=== PATIENT | male | born 1940 | race African-American/Black ===

== ENCOUNTER 2018-07-26 14:42 | Emergency (ER) | payer MEDICARE, BC ==
[~2018-07-26] VITALS: Ht 188 cm; Wt 85.0 kg
[2018-07-26 15:15] VITALS: Ht 188 cm; Wt 85.0 kg
[2018-07-26] MEDS ORDERED: LISI10TA2 PO (17:12)
[2018-07-26] MEDS ORDERED: ATOR20TA38 PO (17:12)
--- NOTE | 2018-07-26 17:12 | ERD ---
ER Documentation Chief Complaint Chief Complaint SENT FOR ADMISSION D/T DX OF PNEUMONIA, C/O COUGH/SOB HPI This is a 77-year-old male presents to the emergency department with a past medical history of hypertension. The patient states that he was visiting [facility] 1 week ago and was seen on July 24 at [facility] where he was diagnosed with walking pneumonia. He had gone to the hospital as he stated he was experiencing hiccups and shortness of breath. The patient drove back from [place] and was given a prescription of Zithromax chlorpromazine and Robitussin. He states however that he did not have these medications filled. He has been experiencing a drug cough that became productive 24 hours prior to a rrival. He also complains of swelling and pain of his bilateral lower extremities. He denies any history of tobacco use. He has had no fevers or shaking or chills. He denies any syncope or near syncope episode. He does not have a headache or neck pain. ROS All systems reviewed and are negative except as per history of present illness. Medications Home Meds Reported Medications Atorvastatin Calcium* (Atorvastatin Calcium*) 20 Mg Tablet, 20 MG PO QHS, #30 TAB 07/26/18 Lisinopril* (Lisinopril*) 10 Mg Tablet, 10 MG PO DAILY, #30 TAB 07/26/18 Allergies Allergies: Coded Allergies: Unknown: Unable to obtain (Unverified , 07/26/18) PT NOT SURE WHAT HE IS ALLERGIC TO PMhx/Soc Medical and Surgical Hx: pt denies Medical Hx, pt denies Surgical Hx Hx Alcohol Use: No Hx Substance Use: No Hx Tobacco Use: No Smoking Status: Unknown if ever smoked Physical Exam Vitals Vital Signs Date Temp Pulse Resp B/P (MAP) Pulse Ox O2 O2 Flow FiO2 Time Delivery Rate 07/26/18 98.3 66 16 101/86 99 Room Air 16:25 (91) 07/26/18 98.8 65 18 97/69 (78) 98 15:15 Physical Exam Constitutional:Well-developed. Well-nourished. HEENT:Normocephalic. Atraumatic.Pupils were equal round reactive to light. Moist mucous membranes.No tonsillar exudates. Neck: No nuchal rigidity. No lymphadenopathy. No posterior cervical spine tenderness or step-offs. Respiratory: Not using accessory muscles of respiration.Lungs were clear to auscultation bilaterally. No rhonchi. No rales. No wheezing. Cardiovascular: Regular rate regular rhythm.No murmurs. No rubs were appreciated.S1, S2 normal. Distal pulses are palpable 2+ bilaterally. GI: Abdomen was soft. Nontender. Non Distended. No pulsatile abdominal masses or bruits. No rebound. No guarding. Bowel sounds were present and normal. Muscle skeletal: Full range of motion of both the upper and lower extremities bilaterally.Normal muscle tone.asymmetrical calf swelling however bilateral calf tenderness with negative Homans sign Skin: No petechia, no purpura. No lesions on the palms or the soles of the feet. No maculopapular rash. NEURO: Patient was alert, awake, orientated x3.No facial droop. Gait observed and normal with no ataxia.Speech had regular rate and rhythm. No focal neurological deficits. Result Diagram: 07/26/18 1607 07/26/18 1607 Results 24 hrs Laboratory Tests Test 07/26/18 16:00 07/26/18 16:07 Urine Color YELLOW Urine Clarity SLIGHTLY CLOUDY Urine pH 5.0 Urine Specific [place] 1.030 Urine Ketones TRACE mg/dL Urine Nitrite NEGATIVE mg/dL Urine Bilirubin NEGATIVE mg/dL Urine Urobilinogen NEGATIVE mg/dL Urine Leukocyte Esterase NEGATIVE Clemente/ul Urine Microscopic RBC 1 /HPF Urine Microscopic WBC 1 /HPF Urine Mucus FEW /HPF Urine Hemoglobin NEGATIVE mg/dL Urine Glucose NEGATIVE mg/dL Urine Total Protein 2+ mg/dl White Blood Count 3.4 10^3/ul Red Blood Count 4.85 10^6/ul Hemoglobin 14.1 g/dl Hematocrit 43.7 % Mean Corpuscular Volume 90.1 fl Mean Corpuscular Hemoglobin 29.1 pg Mean Corpuscular Hemoglobin Concent 32.3 g/dl Red Cell Distribution Width 13.1 % Platelet Count 95 10^3/UL Mean Platelet Volume 12.1 fl Immature Granulocytes % 0.300 % Neutrophils % % Lymphocytes % % Monocytes % % Eosinophils % % Basophils % % Nucleated Red Blood Cells % 0.0 /100WBC Immature Granulocytes # 0.010 10^3/ul Neutrophils # 10^3/ul Lymphocytes # 10^3/ul Monocytes # 10^3/ul Eosinophils # 10^3/ul Basophils # 10^3/ul Nucleated Red Blood Cells # 10^3/ul Prothrombin Time 12.1 Sec Prothrombin Time Ratio 0.9 INR International Normalized Ratio 0.89 Activated Partial Thromboplast Time 33.2 Sec Sodium Level 142 mmol/L Potassium Level 3.8 mmol/L Chloride Level 102 mmol/L Carbon Dioxide Level 29 mmol/L Anion Gap 11 Blood Urea Nitrogen 23 mg/dl Creatinine 1.55 mg/dl Est Glomerular Filtrat Rate mL/min mL/min Glucose Level 106 mg/dl Calcium Level 9.1 mg/dl Total Bilirubin 0.5 mg/dl Direct Bilirubin 0.00 mg/dl Indirect Bilirubin 0.5 mg/dl Aspartate Amino Transf (AST/SGOT) 81 IU/L Alanine Aminotransferase (ALT/SGPT) 32 IU/L Alkaline Phosphatase 61 IU/L Troponin I 0.017 ng/ml B-Type Natriuretic Peptide 418 PG/ML Total Protein 7.2 g/dl Albumin 3.9 g/dl Globulin 3.30 g/dl Albumin/Globulin Ratio 1.18 Amylase Level 99 U/L Lipase 22 U/L Current Medications Medications Dose Sig/Cesar Start Time Status Last (Trade) Ordered Route PRN Stop Time Admin Dose Reason Admin IV Flush 10 ml STK-MED 07/26/18 DC (NS 10 ml) ONCE .ROUTE 18:20 07/26/18 18:21 Sodium 100 ml @ ud STK-MED 07/26/18 DC Chloride ONCE .ROUTE 18:20 07/26/18 18:21 Iodixanol 100 ml STK-MED 07/26/18 DC ([place] ONCE .ROUTE 18:20 Locm) 07/26/18 18:21 Procedures/MDM The patient presented to the emergency department with shortness of breath. My differential diagnosis included but was not limited to upper airway obstruction, CHF, pulmonary embolism, cardiac ischemia, pneumonia, pneumothorax, anemia, drug overdose, pulmonary edema, COPD or asthma. 12 Lead EKG tracing ordered and reviewed by myself showed: Normal sinus rhythm of 65 bpm and no arrhythmia. UT interval normal. QRS duration normal. No ST segment elevation No ST segment depression. No changes consistent with acute ischemia. The patient was a high pretest probability according to the Wells criteria for pulmonary embolism and therefore obtain a CT scan of the patient's chest due to his recent travel. There is no evidence of pulmonary embolism. CT scan of the chest did indicate the followin. Normal CT pulmonary angiogram with no evidence of pulmonary artery embolism. 2. 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 3. Atherosclerosis. 4. Cardiomegaly. 5. Stent in the LAD and circumflex. 6. Dual lead permanent pacemaker/internal cardiac defibrillator. 7. Otherwise unremarkable CT scan of the chest. The patient did have a mild elevation in his creatinine. He did receive IV contrast and therefore was given a liter bolus of normal saline. Venous duplex ultrasounds were negative the bilateral lower extremities. I obtained a chest radiograph that showed no evidence of pneumonia. The patient did not have any physical exam findings to suggest congestive heart failure. The patient had no evidence of pneumonia. I did not feel is necessary to administer antibiotics. I indicated that his cough likely could be the result of a viral etiology. I do feel that he can be safely discharged home. The patient was discharged home in fair condition. They were instructed to return to the emergency department at any time if there was any worsening of their condition. The patient stated they would follow up with their PCP in the next 24-48 hours to initiate a suitable medication regimen under the care of their PCP as well as to allow their PCP to monitor any drug reactions. The patient was discharged home with prescriptions after they gave informed consent to the new medication. They were also fully informed by myself on the adverse effects and adverse drug interactions in order to provide adequate safeguards to prevent possible adverse reactions to medications. Departure Diagnosis: Primary Impression: Shortness of breath Additional Impression: Cough Condition: JOSSY Hutson MD Jul 26, 2018 17:12
[2018-07-26] MEDS ORDERED: SOD CHLORIDE 0.9% 100 ML ONE (18:20)
[2018-07-26] MEDS ORDERED: IODIXANOL LOCM 100 ML BTL ONE (18:20)
[2018-07-26] MEDS ORDERED: BENZ-6 PO (19:04)
[2018-07-26 19:30] VITALS: BP 102/84; PULSE 67; RESP 18
== END 2018-07-26 19:34 | disposition home or self-care (01) ==
LOC: E/R 14:42
DX: R06.02 Shortness of breath (principal); I10 Essential (primary) hypertension
CPT/HCPCS: 71045; 71275; 80053; 81001; 82150; 83690; 83880; 84484; 85025; 85610; 85730; 87040; 87086; 93005; 93970; 99285; Q9967

== ENCOUNTER 2018-08-27 11:58 | Emergency (ER) | payer MEDICARE, BC ==
[~2018-08-27] VITALS: Ht 185.4 cm; Wt 87.7 kg
[~2018-08-27 11:58] MED LIST: ATOR20TA38 PO; BENZ-6 PO; LISI10TA2 PO
[2018-08-27 12:40] VITALS: BP 143/87; PULSE 58; RESP 16; Ht 185.4 cm; Wt 87.7 kg
--- NOTE | 2018-08-27 13:12 | ERD ---
ER Documentation Chief Complaint Chief Complaint RT KNEE PAIN, "FEELS SOMETHING FLOATING" HPI 77-year-old male, previously healthy, presents to the emergency department, complaining of right knee pain that started 1 week ago. The patient denies any recent history of knee trauma. The patient has been able to ambulate without difficulty, he denies distal weakness, numbness or tingling. ROS All systems reviewed and are negative except as per history of present illness. Medications Home Meds Active Scripts Acetaminophen* (Tylenol*) 325 Mg Tablet, 2 TAB PO Q6 PRN for PAIN AND OR ELEVATED TEMP, #20 TAB Prov:BELTRAN EVANS MD 08/27/18 Ibuprofen* (Motrin*) 400 Mg Tab, 400 MG PO Q6H PRN for PAIN AND OR ELEVATED TEMP, #30 TAB Prov:BELTRAN EVANS MD 08/27/18 Benzonatate* (Tessalon Perle*) 100 Mg Capsule, 100 MG PO TID, #20 CAP Prov:JOSSY HENRIQUEZ MD 07/26/18 Reported Medications Atorvastatin Calcium* (Atorvastatin Calcium*) 20 Mg Tablet, 20 MG PO QHS, #30 TAB 07/26/18 Lisinopril* (Lisinopril*) 10 Mg Tablet, 10 MG PO DAILY, #30 TAB 07/26/18 Allergies Allergies: Coded Allergies: No Known Allergy (Unverified , 08/27/18) PMhx/Soc Medical and Surgical Hx: pt denies Medical Hx, pt denies Surgical Hx Hx Alcohol Use: No Hx Substance Use: No Hx Tobacco Use: No FmHx Family History: No diabetes, No coronary disease Physical Exam Vitals Vital Signs Date Temp Pulse Resp B/P (MAP) Pulse Ox O2 O2 Flow FiO2 Time Delivery Rate 08/27/18 98.0 58 16 143/87 99 12:40 (105) Physical Exam Const: No acute distress Head: Atraumatic Eyes: Normal Conjunctiva ENT: Normal External Ears, Nose and Mouth. Neck: Full range of motion. No meningismus. Resp: Clear to auscultation bilaterally Cardio: Regular rate and rhythm, no murmurs Abd: Soft, non tender, non distended. Normal bowel sounds Skin: No petechiae or rashes Back: No midline or flank tenderness Ext: No cyanosis, or edema Neur: Awake and alert Psych: Normal Mood and Affect Procedures/MDM Acute right knee pain: no red flags. Differential diagnosis include but not limited to: contusion, meniscus injury, tendon/ligament injury, arthritis; low suspicion for fracture, dislocation, septic arthritis. Neurovascular exam grossly intact. no clinical findings suggestive of acute infectious process, no acute deformity, no edema, no rashes. Pertinent Data: X-rays: No fracture or dislocation Physical examination and clinical presentation consistent most likely with acute derangement of the right knee. Results and clinical impression discussed with the patient who agrees with management. The patient is stable to be treated outpatient and will be discharged home with recommendations for ice, rest, NSAIDs 3 times daily for 5 days and close monitoring. The patient was instructed to follow up with the primary care provider in the next 48h. If symptoms persist, worsen or new symptoms develop, then patient should return to the ED immediately. Instructions explained and given to patient with acknowledgment and demonstrated understanding. Disclaimer: Inadvertent spelling and grammatical errors are likely due to EHR/di ctation software use and do not reflect on the overall quality of patient care. Also, please note that the electronic time recorded on this note does not necessarily reflect the actual time of the patient encounter. Departure Diagnosis: Primary Impression: Right knee pain Condition: Stable Additional Instructions: Thank you very much for allowing us to participate in your care. Your health and safety is our top priority at [facility]. Call your primary care doctor TOMORROW for an appointment during the next 2-4 days and bring all the information and medications prescribed. Have prescriptions filled and follow precisely the directions on the label. If the symptoms get worse and your provider is unavailable, return to the Emergency Department immediately. BELTRAN EVANS MD Aug 27, 2018 13:12
[2018-08-27] MEDS ORDERED: IBUP-1561 PO (14:26)
[2018-08-27] MEDS ORDERED: ACET325T33 PO (14:26)
== END 2018-08-27 14:30 | disposition home or self-care (01) ==
LOC: FTE 11:58
DX: M25.561 Pain in right knee (principal)
CPT/HCPCS: 73562; 99283